=== PATIENT | female | born 1965 | race Caucasian/White ===

== ENCOUNTER → 2018-03-29 | Outpatient (CLI) | payer OTHER ==
[~2018-03-29] MED LIST: CALC1CAP8 PO; CEPH-376 PO; EFFEXOR PO; FISH OIL PO; GLUCOSAMINE/MSM PO; MULT1TAB9 PO; ONDA4TAB12 PO; OXYC-302 PO; SERT25TA3 PO; TAMO20TA PO
== END | disposition home or self-care (01) ==
LOC: CFH 14:53
PROVIDERS: ATTEND Family Medicine
DX: M71.21 Synovial cyst of popliteal space [Baker], right knee (principal); M94.261 Chondromalacia, right knee
CPT/HCPCS: 76536